=== PATIENT | male | born 1985 | race Two or more races ===

== ENCOUNTER 2019-11-04 12:13 | Emergency (ER) | payer SELFPAY ==
--- NOTE | 2019-11-04 12:42 | ER Document Report ---
ED Medical Screen (RME) - General Chief Complaint: Abscess Stated Complaint: ABSCESS Notes: Patient is a 34-year-old male with no reported past medical history who presents the emergency department chief complaint of abscess formation under the chin on the neck area for about a week. States it has continued to grow during that time. He states that he was now concerned because it feels like it is starting to grow inward and feels like it is pushing on his throat. He states he is noticed some slight difficulty with swallowing recently. He denies any fever, chills or night sweats. No chest pain or shortness of breath. I have treated and performed a rapid initial assessment of this patient. A comprehensive ED assessment and evaluation of the patient, analysis of test results and completion of medical decision making process will be conducted by additional ED providers. PHYSICAL EXAMINATION: GENERAL: Well-appearing, well-nourished and in no acute distress. A&Ox4. Answers questions appropriately. Physical Exam - Vital signs Vitals: Temp Pulse Resp BP Pulse Ox 98.8 F 89 16 140/74 H 97 11/04/19 12:18 11/04/19 12:18 11/04/19 12:18 11/04/19 12:18 11/04/19 12:18 Course - Vital Signs Vital signs: Temp Pulse Resp BP Pulse Ox 98.8 F 89 16 140/74 H 97 11/04/19 12:18 11/04/19 12:18 11/04/19 12:18 11/04/19 12:18 11/04/19 12:18
[2019-11-04 13:22] LABS: ABSOLUTE EOSINOPHILS # (AUTO) 0.1 10^3/uL (0.0-0.6); ABSOLUTE MONOCYTES (AUTO) 0.5 10^3/uL (0.1-1.4); ABSOLUTE NEUT (AUTO) 4.4 10^3/uL (1.7-8.2); BASOPHILS % (AUTO) 0.4 % (0-2); EOSINOPHILS % (AUTO) 1.1 % (0-6); HEMATOCRIT 42.2 % (37.9-51.0); HEMOGLOBIN 14.7 g/dL (13.5-17.0); LYMPHOCYTES % (AUTO) 28.8 % (13-45); MEAN CORPUSCULAR HEMOGLOBIN 32.8 pg (27.0-33.4); MEAN CORPUSCULAR HGB CONC 34.9 g/dL (32.0-36.0); MEAN CORPUSCULAR VOLUME 94 fl (80-97); MONOCYTES % (AUTO) 7.5 % (3-13); PLATELET COUNT 217 10^3/uL (150-450); RED BLOOD COUNT 4.49 10^6/uL (4.35-5.55); RED CELL DISTRIBUTION WIDTH 13.1 % (11.5-14.0); SEGMENTED NEUTROPHILS % (AUTO) 62.2 % (42-78); TOTAL CELLS COUNTED % (AUTO) 100 %; WHITE BLOOD COUNT 7.1 10^3/uL (4.0-10.5)
[2019-11-04 13:40] LABS: ALBUMIN 4.5 g/dL (3.5-5.0); ALKALINE PHOSPHATASE 56 U/L (38-126); ANION GAP 9 (5-19); ASPARTATE AMINO TRANSFERASE 30 U/L (17-59); BILIRUBIN,DIRECT 0.4 mg/dL (0.0-0.4); BLOOD UREA NITROGEN 11 mg/dL (7-20); CALCIUM 9.3 mg/dL (8.4-10.2); CARBON DIOXIDE 24 mmol/L (22-30); CHLORIDE 105 mmol/L (98-107); GLUCOSE 93 mg/dL (75-110); POTASSIUM 4.2 mmol/L (3.6-5.0); TOTAL PROTEIN 7.1 g/dL (6.3-8.2)
--- NOTE | 2019-11-04 14:01 | RADIOLOGY REPORT (SQ) ---
EXAM DESCRIPTION: CT SOFT TISSUE NECK WITH IMAGES COMPLETED DATE/TIME: 11/04/2019 1:26 pm REASON FOR STUDY: submental abscess COMPARISON: None. TECHNIQUE: Post IV contrasted scanning from skull base through lung apices with review of bone, soft tissue and lung windows. Reconstructed coronal and sagittal MPR images reviewed. All images stored on PACS. All CT scanners at this facility use dose modulation, iterative reconstruction, and/or weight based d osing when appropriate to reduce radiation dose to as low as reasonably achievable (ALARA). [facility]: Dose Right [facility]: CareDose [facility]: Dose Right [facility]: Teradose 4D [facility]: TutorialTab CONTRAST TYPE AND DOSE: Contrast/concentration: Isovue 350.00 mmol/ml; Total Contrast Delivered: 75. 0 ml; Total Saline Delivered: 39.0 ml RENAL FUNCTION: GFR > 60. RADIATION DOSE: CT Rad equipment meets quality standard of care and radiation dose reduction techniq ues were employed. CTDIvol: 18.9 mGy. DLP: 648 mGy-cm. LIMITATIONS: None. FINDINGS: SKULL BASE: Intact. MAJOR SALIVARY GLANDS: There is no abnormality or asymmetry of the submandibular and parotid glands. LYMPHADENOPATHY: There are borderline enlarged Ia, bilateral Ib and bilateral IIa lymph nodes that me asure up to 9 mm in short axis diameter. MUCOSAL MASSES OR ASYMMETRY: No mass or asymmetry. LARYNX/CORDS: No abnormality. VASCULAR STRUCTURES: Patent. LUNG APICES: Solid 5 mm nodule in the right upper lobe (image 120 of series 3). BONES: Intact. THYROID: No abnormality. PARANASAL SINUSES: Clear. OTHER: In the anterior aspect of the neck, to the right of midline at the level of the thyroid cartil age are (image 68 of series 3), there is an area of cutaneous thickening associated with inflammatory stranding of the surrounding subcutaneous fat and appears to contain a rim-enhancing fluid collectio n that measures 9 x 3 mm. IMPRESSION: Probable subcutaneous abscess in the anterior aspect of the neck, to the right of midlin e at the level of the thyroid cartilage (image 68 of series 3), associated with cutaneous thickening, inflammatory stranding of the surrounding subcutaneous fat, and reactive adenopathy. TECHNICAL DOCUMENTATION: JOB ID: [id number] Quality ID # [id number]: Final reports with documentation of one or more dose reduction techniques (e.g., Au tomated exposure control, adjustment of the mA and/or kV according to patient size, use of iterative reconstruction technique) 2010 [employer]- All Rights Reserved Reading location - IP/workstation name: [email or web address]
[2019-11-04] MEDS ORDERED: LIDOCAINE 1%/EPINEPHRINE INJ 20 ML VIAL INJ ONE (15:13)
--- NOTE | 2019-11-04 15:42 | ER Document Report ---
ED General - General Chief Complaint: Abscess Stated Complaint: ABSCESS Primary Care Provider: JESSICA VITALE MD [ACTIVE STAFF] - Follow up as needed Notes: Patient is a 34-year-old male with no reported past medical history who presents the emergency department chief complaint of abscess formation under the chin on the neck area for about a week. States it has continued to grow during that time. He states that he was now concerned because it feels like it is starting to grow inward and feels like it is pushing on his throat. He states he is noticed some slight difficulty with swallowing recently. He denies any fever, chills or night sweats. No chest pain or shortness of breath. - Related Data Allergies/Adverse Reactions: No Known Allergies Allergy (Verified 11/04/19 12:47) Past Medical History - Social History Smoking Status: Never Smoker Family History: Reviewed & Not Pertinent Review of Systems - Review of Systems Constitutional: denies: Fever EENT: Other - Sensation of fullness with swallowing, no difficulty swallowing or trouble breathing. denies: Throat pain Cardiovascular: denies: Chest pain Respiratory: denies: Short of breath Gastrointestinal: denies: Vomiting Genitourinary: denies: Pain Male Genitourinary: denies: Testicular pain Musculoskeletal: denies: Neck pain Skin: denies: Rash Hematologic/Lymphatic: denies: Easy bruising Neurological/Psychological: denies: Headaches Physical Exam - Vital signs Vitals: Temp Pulse Resp BP Pulse Ox 98.8 F 89 16 140/74 H 97 11/04/19 12:18 11/04/19 12:18 11/04/19 12:18 11/04/19 12:18 11/04/19 12:18 - General General appearance: Appears well, Alert In distress: None - HEENT Head: Normocephalic, Atraumatic Eyes: Normal Conjunctiva: Normal Pupils: PERRL Ears: Normal External canal: Normal Nasal: Normal Mouth/Lips: Normal Mucous membranes: Normal Pharynx: Normal Neck: Other - Cutaneous abscess formation just right of midline to the mid neck. No submental edema no sublingual edema. Patent airway. Handling secretions well. - Respiratory Respiratory status: No respiratory distress Chest status: Nontender Breath sounds: Normal Chest palpation: Normal Notes: Speaks in full sentences - Cardiovascular Rhythm: Regular Heart sounds: Normal auscultation - Neurological Neuro grossly intact: Yes Cognition: Normal Orientation: AAOx4 - Psychological Associated symptoms: Normal affect, Normal mood - Skin Skin Color: Other - Normal with the exception of the neck abscess described above Course - Re-evaluation Re-evalutation: 11/04/19 15:56 Patient tolerated I&D well. CT scan showing a fluid collection and abscess subcutaneous with surrounding inflammation but no airway compromise or extension. Patient placed on Bactrim. Discussed follow-up in 2 to 3 days for wound recheck and reevaluation. We discussed the incidental finding of the lung nodule on CT, I advised he follow-up with a primary doctor outpatient regarding this for further testing, monitoring and care. Advised to return here or any ER immediately with any new, persistent or worsening symptoms. He verbalized understood and agreed. - Vital Signs Vital signs: Temp Pulse Resp BP Pulse Ox 98.8 F 89 16 140/74 H 97 11/04/19 12:18 11/04/19 12:18 11/04/19 12:18 11/04/19 12:18 11/04/19 12:18 - Laboratory Result Diagrams: 11/04/19 13:03 11/04/19 13:03 Procedures - Incision and Drainage Right Neck Time completed: 15:56 Type: Simple Anesthetic type: 1% Lidocaine w/epi mL's of anesthetic: 3 Blade size: 11 I&D procedure: Betadine prep applied, Shurclens applied Incision Method: Incision made with needle Amount/type of drainage: Scant bloody/purulent Notes: 11/04/19 15:56 Tolerated well. Discharge - Discharge Clinical Impression: Neck abscess Condition: Stable Disposition: HOME, SELF-CARE Instructions: Post Incision and Drainage, Trimethoprim-Sulfa ([facility]) Additional Instructions: As discussed a nodule was found incidentally in the right upper lung. Please follow-up outpatient for continued monitoring and management of this. Follow-up with your regular doctor in 2 to 3 days for reevaluation. Return here or any ER immediately with any new, persistent or worsening symptoms. Prescriptions: Sulfamethoxazole/Trimethoprim [Bactrim Ds Tablet] 1 each PO BID #20 tablet Referrals: JESSICA VITALE MD [ACTIVE STAFF] - Follow up as needed
[2019-11-04 16:12] VITALS: BP 133/74
== END 2019-11-04 16:03 | disposition home or self-care (01) ==
LOC: ER 12:13
PROC: 0H94XZZ Drainage of Neck Skin, External Approach (ICD-10-PCS; principal; 2019-11-04)
DX: L02.11 Cutaneous abscess of neck (principal); R13.10 Dysphagia, unspecified
CPT/HCPCS: 36415; 85025; 80053; 70491; 10060; J3490; 99285